=== PATIENT | female | born 2000 | race Caucasian/White ===

== ENCOUNTER 2022-11-28 16:37 | Emergency (ER) | payer OTHER, SELFPAY ==
--- NOTE | ~2022-11-28 | US_ITS ---
EXAMINATION: US PELVIS CLINICAL INFORMATION: Lower abdominal pain COMPARISON: None available. TECHNIQUE: Ultrasound of the pelvis is performed using both transabdominal and transvaginal transducers along with Doppler. Transvaginal imaging is performed due to inadequate visualization transabdominally. FINDINGS: Uterus: The uterus is anteverted and measures 6.7 x 2.8 x 3.7 cm. The double wall endometrial thickness is 2 mm. The uterus is smooth in contour and has normal myometrial echogenicity. No visible fibroid. Adnexa: Both ovaries are visualized. There is normal color flow to the adnexa. There is no ovarian torsion. There is no pelvic ascites or fluid collection. Right ovary measures 3.6 x 2.5 x 1.8 cm and volume 8.5 mL there are small follicular cysts. There is normal lumbar arterial and venous flow seen right ovarian Doppler exam. Left ovary measures 3.1 x 1.5 x 1.7 cm and volume 4.1 mL. Small follicular cysts seen. There is normal arterial and venous flow seen to left ovarian Doppler exam. There is a small anechoic cyst in the cul-de-sac question small left paraovarian cyst. There is no free fluid in cul-de-sac. US/US pelvic ovarian doppler IMPRESSION: Anechoic 3.4 cm cyst in the cul-de-sac likely arising off the left parametrium. There are small follicular cysts seen in both ovaries. The uterus is unremarkable.
--- NOTE | ~2022-11-28 | CT_ITS ---
EXAMINATION: CT ABDOMEN AND PELVIS WITH CONTRAST CLINICAL INFORMATION: Epigastric pain, leukocytosis. COMPARISON: None available. TECHNIQUE: Multidetector volumetric images were obtained from the superior aspect of the liver through the pubic symphysis following administration 85 mL of Omnipaque 350 intravenous contrast. Sagittal and coronal reformatted images were obtained on the technologist's workstation. Oral contrast: No This CT examination was performed using dose optimization techniques as appropriate, variously including the following: *Automated exposure control *Adjustment of mA and/or kV according to patient size (this includes techniques or standardized protocols for targeted exams where dose is matched to indication/reason for exam; i.e. extremities or head) *Use of iterative reconstruction technique DLP: 376 mGy-cm FINDINGS: LUNG BASES: The visualized lung bases are unremarkable. LIVER, GALLBLADDER, AND BILIARY TREE: The liver is normal in size, shape, and attenuation. No focal hepatic lesion or biliary ductal dilatation is present. The gallbladder is unremarkable with no evidence of radiopaque gallstones, gallbladder wall thickening, or obvious pericholecystic inflammatory changes. PANCREAS: Unremarkable. SPLEEN: Unremarkable. ADRENAL GLANDS: Unremarkable. KIDNEYS AND URETERS: The left kidney is small right kidney and measures kidney measures 11.3 cm. There is a left mid pole cortical thinning likely old scar. There are no radiopaque renal calculi or hydronephrosis in either side. There are bilateral extrarenal kidney pelvises.. No perinephric stranding. BLADDER: Unremarkable. GASTROINTESTINAL TRACT: Scattered stool and gas is seen throughout the colon without any significant distention. The small bowel loops are normal caliber. Appendix is not visualized. ABDOMINAL WALL: A small lacunar hernia containing fat is noted. LYMPH NODES: Normal. VASCULAR: Unremarkable. PELVIC VISCERA: There is a 4.0 x 3.5 x 3.5 cm cyst to left and posterior of uterus likely ovarian or paraovarian cyst. It measures 4 Hounsfield units. There is no free fluid. OSSEOUS STRUCTURES: No aggressive lytic or sclerotic process seen. CT/CT abdomen pelvis w IV con IMPRESSION: 1. No acute intra-abdominal process seen. 2. Mild constipation. 3. Left ovarian or paraovarian cyst. 4. Small left kidney with lateral cortex midpole scar Fleischner guidelines were followed.
--- NOTE | ~2022-11-28 | US_ITS ---
EXAMINATION: US PELVIS CLINICAL INFORMATION: Lower abdominal pain COMPARISON: None available. TECHNIQUE: Ultrasound of the pelvis is performed using both transabdominal and transvaginal transducers along with Doppler. Transvaginal imaging is performed due to inadequate visualization transabdominally. FINDINGS: Uterus: The uterus is anteverted and measures 6.7 x 2.8 x 3.7 cm. The double wall endometrial thickness is 2 mm. The uterus is smooth in contour and has normal myometrial echogenicity. No visible fibroid. Adnexa: Both ovaries are visualized. There is normal color flow to the adnexa. There is no ovarian torsion. There is no pelvic ascites or fluid collection. Right ovary measures 3.6 x 2.5 x 1.8 cm and volume 8.5 mL there are small follicular cysts. There is normal lumbar arterial and venous flow seen right ovarian Doppler exam. Left ovary measures 3.1 x 1.5 x 1.7 cm and volume 4.1 mL. Small follicular cysts seen. There is normal arterial and venous flow seen to left ovarian Doppler exam. There is a small anechoic cyst in the cul-de-sac question small left paraovarian cyst. There is no free fluid in cul-de-sac. US/US pelvic and transvaginal IMPRESSION: Anechoic 3.4 cm cyst in the cul-de-sac likely arising off the left parametrium. There are small follicular cysts seen in both ovaries. The uterus is unremarkable.
--- NOTE | 2022-11-28 16:45 | ED_ITS ---
HPI - Abdominal Pain General Chief Complaint: Abdominal Pain <Rosio Hays NP - Last Filed: 11/29/22 11:02> Stated Complaint: vomiting/ abd pain <Rosio Hays NP - Last Filed: 11/29/22 11:02> Time Seen by Provider: 11/28/22 17:13 <Rosio Hays NP - Last Filed: 11/29/22 11:02> Source: patient <CESAR Resendiz Last Filed: 11/28/22 17:29> Mode of arrival: ambulatory <CESAR Resendiz Last Filed: 11/28/22 17:29> Limitations: no limitations <CESAR Resendiz Last Filed: 11/28/22 17:29> History of Present Illness HPI narrative: This is a 22-year-old female presenting to the emergency department with nausea, vomiting, abdominal pain, subjective fevers and chills and anorexia x1 day, patient reports she has had multiple episodes of nausea and vomiting reports bilious vomiting, unable to keep anything down. Abdominal pain started in the epigastric region and has migrated down a little further per patient. Patient still has her appendix and gallbladder. Denies recent sick contacts. Denies chest pain, shortness of breath, headache, vision changes, dizziness, weakness, changes in urination or bowel habits <CESAR Resendiz Last Filed: 11/28/22 17:29> Related Data Home Medications: Previous Rx's Medication Instructions Recorded ketorolac 10 mg tablet 10 mg PO TID PRN pain 5 days #15 11/28/22 tabs <Rosio Hays NP - Last Filed: 11/29/22 11:02> Allergies/Adverse Reactions: Allergies Allergy/AdvReac Type Severity Reaction Status Date / Time No Known Allergies Allergy Verified 11/28/22 16:46 <JAI Ling Last Filed: 11/29/22 11:02> [facility] Social History Social History: Social History Smoked in Last 30 Days: Yes Use of substances other than those prescribed or required for medical reasons: Yes Substance Use Type: Marijuana Substance Use Frequency: Daily Advance Directives: No Advance Directives Information Provided: Yes <JAI Ling Last Filed: 11/29/22 11:02> Physical Exam ED Vital Signs: Vital Signs - 24 hr 11/28/22 16:47 11/28/22 17:45 11/28/22 20:22 Temperature 98.3 F 99.6 F Pulse Rate 80 87 81 Respiratory Rate 16 18 17 Blood Pressure 131/94 H 108/69 117/71 Pulse Oximetry 95 100 100 Oxygen Delivery Method Room Air Room Air Room Air BMI result Body Mass Index 22.0 <Rosio Hays NP - Last Filed: 11/29/22 11:02> Vital Signs - 24 hr 11/28/22 16:47 11/28/22 17:45 11/28/22 20:22 Temperature 98.3 F 99.6 F Pulse Rate 80 87 81 Respiratory Rate 16 18 17 Blood Pressure 131/94 H 108/69 117/71 Pulse Oximetry 95 100 100 Oxygen Delivery Method Room Air Room Air Room Air BMI result Body Mass Index 22.0 <CESAR Resendiz - Last Filed: 11/28/22 17:29> Course Course Course Narrative: This is a rapid medical exam. Deferred additional HPI, ROS, PE to primary provider. 22 yo female here with mid abdominal pain, vomiting, chills which began today. No diarrhea, urinary symptoms. LMP 1 week ago (irregular) Will check labs, UA VSS <Rosio Hays NP - Last Filed: 11/29/22 11:02> Medical Decision Making Lab Data Result Diagrams: 11/28/22 17:02 11/28/22 17:02 <Rosio Hays NP - Last Filed: 11/29/22 11:02> Labs: Lab Results 11/28/22 11/28/22 11/28/22 Range/Units 17:00 17:00 17:02 WBC 22.4 H (4.8-10.8) X10*3/uL RBC 4.58 (4.20-5.50) X10*6/uL Hgb 14.5 (12.0-16.0) g/dl Hct 41.1 (37.0-47.0) % MCV 89.7 (80.0-98.0) fL MCH 31.7 (27.0-33.0) pg MCHC 35.3 H (31.0-35.0) g/dl RDW 12.2 (11.0-16.0) % Plt Count 217 (160-400) X10*3/uL MPV 11.2 (9.4-12.3) fL Immature Gran % (Auto) 0.4 (0.0-0.4) % Neut % (Auto) 87.7 H (45-73) % Lymph % (Auto) 6.9 L (20-40) % Mcdonough % (Auto) 4.2 (2-11) % Eos % (Auto) 0.6 (0-4) % Baso % (Auto) 0.2 (0-2) % Lymph # (Auto) 1.6 (1.2-4.9) X10*3/uL Mcdonough # (Auto) 1.0 (0.1-1.2) X10*3/uL Eos # (Auto) 0.1 (0.0-0.4) X10*3/uL Baso # (Auto) 0.1 (0.0-0.2) X10*3/uL Abs Immat Gran (auto) 0.10 H (0.00-0.03) X10*3/uL Absolute Neuts (auto) 19.6 H (2.0-8.3) x10*3/uL Absolute Nucleated RBC 0.000 (0.0-0.012) X10*3/uL Nucleated RBC % (auto) 0.0 (0.0-0.2) /100WBC Sodium (135-145) mmol/L Potassium (3.3-5.1) mmol/L Chloride (96-108) mmol/L Carbon Dioxide (22-29) mmol/L Anion Gap (12-20) BUN (9-16) mg/dL Creatinine (0.5-1.4) mg/dL Estim Creat Clear Calc Estimated GFR Random Glucose (60-115) mg/dL Lactic Acid (0.5-2.0) mmol/L Calcium (8.4-10.2) mg/dL Total Bilirubin (0.0-1.0) mg/dL Direct Bilirubin (0.0-0.5) mg/dL AST (5-31) U/L ALT (0-31) U/L Alkaline Phosphatase (39-117) U/L Total Protein (6.5-8.0) g/dL Albumin (3.5-5.0) g/dL Lipase (8-78) U/L Beta HCG, Quant mIU/mL Urine Color Yellow Urine Appearance Cloudy Urine pH 5.5 (5.0-9.0) Ur Specific [place] 1.025 (1.005-1.025) Urine Protein 30 (1+) H (Neg-Trace) mg/dL Urine Glucose (UA) Negative (Negative) mg/dL Urine Ketones 80 (Negative) mg/dL Urine Blood Large (3+) H (Negative) Urine Nitrite Negative (Negative) Ur Leukocyte Esterase Trace H (Negative) Urine RBC >20 H (0-2) /HPF Urine WBC 0-5 (0-5) /HPF Ur Squamous Epith Cells >20 (0-2) /HPF Urine Bacteria 4+ (None Seen) Hyaline Casts 0-2 (0-2) /LPF Urine Yeast Present Urine Test NEGATIVE (NEGATIVE) 11/28/22 11/28/22 Range/Units 17:02 17:45 WBC (4.8-10.8) X10*3/uL RBC (4.20-5.50) X10*6/uL Hgb (12.0-16.0) g/dl Hct (37.0-47.0) % MCV (80.0-98.0) fL MCH (27.0-33.0) pg MCHC (31.0-35.0) g/dl RDW (11.0-16.0) % Plt Count (160-400) X10*3/uL MPV (9.4-12.3) fL Immature Gran % (Auto) (0.0-0.4) % Neut % (Auto) (45-73) % Lymph % (Auto) (20-40) % Mcdonough % (Auto) (2-11) % Eos % (Auto) (0-4) % Baso % (Auto) (0-2) % Lymph # (Auto) (1.2-4.9) X10*3/uL Mcdonough # (Auto) (0.1-1.2) X10*3/uL Eos # (Auto) (0.0-0.4) X10*3/uL Baso # (Auto) (0.0-0.2) X10*3/uL Abs Immat Gran (auto) (0.00-0.03) X10*3/uL Absolute Neuts (auto) (2.0-8.3) x10*3/uL Absolute Nucleated RBC (0.0-0.012) X10*3/uL Nucleated RBC % (auto) (0.0-0.2) /100WBC Sodium 137 (135-145) mmol/L Potassium 4.3 (3.3-5.1) mmol/L Chloride 106 (96-108) mmol/L Carbon Dioxide 22 (22-29) mmol/L Anion Gap 13 (12-20) BUN 18 H (9-16) mg/dL Creatinine 0.85 (0.5-1.4) mg/dL Estim Creat Clear Calc 94.2 Estimated GFR > 60 Random Glucose 114 (60-115) mg/dL Lactic Acid 0.8 (0.5-2.0) mmol/L Calcium 10.1 (8.4-10.2) mg/dL Total Bilirubin 1.7 H (0.0-1.0) mg/dL Direct Bilirubin 0.4 (0.0-0.5) mg/dL AST 20 (5-31) U/L ALT 15 (0-31) U/L Alkaline Phosphatase 70 (39-117) U/L Total Protein 7.4 (6.5-8.0) g/dL Albumin 4.7 (3.5-5.0) g/dL Lipase 13 (8-78) U/L Beta HCG, Quant < 2 mIU/mL Urine Color Urine Appearance Urine pH (5.0-9.0) Ur Specific [place] (1.005-1.025) Urine Protein (Neg-Trace) mg/dL Urine Glucose (UA) (Negative) mg/dL Urine Ketones (Negative) mg/dL Urine Blood (Negative) Urine Nitrite (Negative) Ur Leukocyte Esterase (Negative) Urine RBC (0-2) /HPF Urine WBC (0-5) /HPF Ur Squamous Epith Cells (0-2) /HPF Urine Bacteria (None Seen) Hyaline Casts (0-2) /LPF Urine Yeast Urine Test (NEGATIVE) <Rosio Hays, [employer] - Last Filed: 11/29/22 11:02> Lab Results 11/28/22 11/28/22 11/28/22 Range/Units 17:00 17:00 17:02 WBC 22.4 H (4.8-10.8) X10*3/uL RBC 4.58 (4.20-5.50) X10*6/uL Hgb 14.5 (12.0-16.0) g/dl Hct 41.1 (37.0-47.0) % MCV 89.7 (80.0-98.0) fL MCH 31.7 (27.0-33.0) pg MCHC 35.3 H (31.0-35.0) g/dl RDW 12.2 (11.0-16.0) % Plt Count 217 (160-400) X10*3/uL MPV 11.2 (9.4-12.3) fL Immature Gran % (Auto) 0.4 (0.0-0.4) % Neut % (Auto) 87.7 H (45-73) % Lymph % (Auto) 6.9 L (20-40) % Mcdonough % (Auto) 4.2 (2-11) % Eos % (Auto) 0.6 (0-4) % Baso % (Auto) 0.2 (0-2) % Lymph # (Auto) 1.6 (1.2-4.9) X10*3/uL Mcdonough # (Auto) 1.0 (0.1-1.2) X10*3/uL Eos # (Auto) 0.1 (0.0-0.4) X10*3/uL Baso # (Auto) 0.1 (0.0-0.2) X10*3/uL Abs Immat Gran (auto) 0.10 H (0.00-0.03) X10*3/uL Absolute Neuts (auto) 19.6 H (2.0-8.3) x10*3/uL Absolute Nucleated RBC 0.000 (0.0-0.012) X10*3/uL Nucleated RBC % (auto) 0.0 (0.0-0.2) /100WBC Sodium (135-145) mmol/L Potassium (3.3-5.1) mmol/L Chloride (96-108) mmol/L Carbon Dioxide (22-29) mmol/L Anion Gap (12-20) BUN (9-16) mg/dL Creatinine (0.5-1.4) mg/dL Estim Creat Clear Calc Estimated GFR Random Glucose (60-115) mg/dL Lactic Acid (0.5-2.0) mmol/L Calcium (8.4-10.2) mg/dL Total Bilirubin (0.0-1.0) mg/dL Direct Bilirubin (0.0-0.5) mg/dL AST (5-31) U/L ALT (0-31) U/L Alkaline Phosphatase (39-117) U/L Total Protein (6.5-8.0) g/dL Albumin (3.5-5.0) g/dL Lipase (8-78) U/L Beta HCG, Quant mIU/mL Urine Color Yellow Urine Appearance Cloudy Urine pH 5.5 (5.0-9.0) Ur Specific [place] 1.025 (1.005-1.025) Urine Protein 30 (1+) H (Neg-Trace) mg/dL Urine Glucose (UA) Negative (Negative) mg/dL Urine Ketones 80 (Negative) mg/dL Urine Blood Large (3+) H (Negative) Urine Nitrite Negative (Negative) Ur Leukocyte Esterase Trace H (Negative) Urine RBC >20 H (0-2) /HPF Urine WBC 0-5 (0-5) /HPF Ur Squamous Epith Cells >20 (0-2) /HPF Urine Bacteria 4+ (None Seen) Hyaline Casts 0-2 (0-2) /LPF Urine Yeast Present Urine Test NEGATIVE (NEGATIVE) 11/28/22 11/28/22 Range/Units 17:02 17:45 WBC (4.8-10.8) X10*3/uL RBC (4.20-5.50) X10*6/uL Hgb (12.0-16.0) g/dl Hct (37.0-47.0) % MCV (80.0-98.0) fL MCH (27.0-33.0) pg MCHC (31.0-35.0) g/dl RDW (11.0-16.0) % Plt Count (160-400) X10*3/uL MPV (9.4-12.3) fL Immature Gran % (Auto) (0.0-0.4) % Neut % (Auto) (45-73) % Lymph % (Auto) (20-40) % Mcdonough % (Auto) (2-11) % Eos % (Auto) (0-4) % Baso % (Auto) (0-2) % Lymph # (Auto) (1.2-4.9) X10*3/uL Mcdonough # (Auto) (0.1-1.2) X10*3/uL Eos # (Auto) (0.0-0.4) X10*3/uL Baso # (Auto) (0.0-0.2) X10*3/uL Abs Immat Gran (auto) (0.00-0.03) X10*3/uL Absolute Neuts (auto) (2.0-8.3) x10*3/uL Absolute Nucleated RBC (0.0-0.012) X10*3/uL Nucleated RBC % (auto) (0.0-0.2) /100WBC Sodium 137 (135-145) mmol/L Potassium 4.3 (3.3-5.1) mmol/L Chloride 106 (96-108) mmol/L Carbon Dioxide 22 (22-29) mmol/L Anion Gap 13 (12-20) BUN 18 H (9-16) mg/dL Creatinine 0.85 (0.5-1.4) mg/dL Estim Creat Clear Calc 94.2 Estimated GFR > 60 Random Glucose 114 (60-115) mg/dL Lactic Acid 0.8 (0.5-2.0) mmol/L Calcium 10.1 (8.4-10.2) mg/dL Total Bilirubin 1.7 H (0.0-1.0) mg/dL Direct Bilirubin 0.4 (0.0-0.5) mg/dL AST 20 (5-31) U/L ALT 15 (0-31) U/L Alkaline Phosphatase 70 (39-117) U/L Total Protein 7.4 (6.5-8.0) g/dL Albumin 4.7 (3.5-5.0) g/dL Lipase 13 (8-78) U/L Beta HCG, Quant < 2 mIU/mL Urine Color Urine Appearance Urine pH (5.0-9.0) Ur Specific [place] (1.005-1.025) Urine Protein (Neg-Trace) mg/dL Urine Glucose (UA) (Negative) mg/dL Urine Ketones (Negative) mg/dL Urine Blood (Negative) Urine Nitrite (Negative) Ur Leukocyte Esterase (Negative) Urine RBC (0-2) /HPF Urine WBC (0-5) /HPF Ur Squamous Epith Cells (0-2) /HPF Urine Bacteria (None Seen) Hyaline Casts (0-2) /LPF Urine Yeast Urine Test (NEGATIVE) <CESAR Resendiz - Last Filed: 11/28/22 17:29> Medications Administered Discontinued Medications Generic Name Dose Route Start Last Admin Trade Name Freq PRN Reason Stop Dose Admin Sodium Chloride 1,000 mls @ 999 mls/hr 11/28/22 17:30 11/28/22 19:02 Ns IV 11/28/22 18:30 Infused .Q1H1M ANÍBAL Infusion Iohexol 100 ml 11/28/22 18:02 11/28/22 18:02 Iohexol 350 Mg/Ml 100 Ml Infus..Btl IV 11/28/22 18:03 85 ml ONCE ONE Administration Ketorolac Tromethamine 30 mg 11/28/22 17:28 11/28/22 18:03 Ketorolac Tromethamine 15 Mg/Ml Vial IVPUSH 11/28/22 17:29 30 mg ONCE ONE Administration <Rosio Hays NP - Last Filed: 11/29/22 11:02> Medications Administered Discontinued Medications Generic Name Dose Route Start Last Admin Trade Name Freq PRN Reason Stop Dose Admin Sodium Chloride 1,000 mls @ 999 mls/hr 11/28/22 17:30 11/28/22 19:02 Ns IV 11/28/22 18:30 Infused .Q1H1M ANÍBAL Infusion Iohexol 100 ml 11/28/22 18:02 11/28/22 18:02 Iohexol 350 Mg/Ml 100 Ml Infus..Btl IV 11/28/22 18:03 85 ml ONCE ONE Administration Ketorolac Tromethamine 30 mg 11/28/22 17:28 11/28/22 18:03 Ketorolac Tromethamine 15 Mg/Ml Vial IVPUSH 11/28/22 17:29 30 mg ONCE ONE Administration <CESAR Resendiz - Last Filed: 11/28/22 17:29> Discharge Plan Discharge Clinical Impression: Abdominal pain, Nausea & vomiting, Ovarian cyst, UTI (urinary tract infection) <Rosio Hays NP - Last Filed: 11/29/22 11:02> Patient Disposition: Home, Self-Care <Rosio Hays NP - Last Filed: 11/29/22 11:02> Instructions: Ovarian Cyst (ED), Urinary Tract Infection in Women (DC), Acute Nausea and Vomiting (ED), Abdominal Pain (ED) <Rosio Hays NP - Last Filed: 11/29/22 11:02> Additional Instructions: Take your medications as prescribed. If you were prescribed antibiotics today, it is important that you take your medication to their entirety, do not skip any doses, do not finish them early. Follow-up with your primary care provider this week. Please follow-up with OBGYN Return to the emergency department with new or worsening symptoms. Such as fevers, chills, chest pain, shortness of breath, nausea, vomiting, dizziness, headache, vision changes, lethargy In case of emergency call 911 Toradol has been sent to your pharmacy, you tolerated this well in the department. Please take this as prescribed do not take this with ibuprofen, or other NSAIDs, do not mix this with alcohol. Side effects of this medication including increased risk for bleeding and possible kidney injury. ?CT/CT abdomen pelvis w IV con IMPRESSION: 1.? No acute intra-abdominal process seen. 2.? Mild constipation. 3.? Left ovarian or paraovarian cyst. 4.? Small left kidney with lateral cortex midpole scar ? Fleischner guidelines were followed. US/US pelvic ovarian doppler IMPRESSION: Anechoic 3.4 cm cyst in the cul-de-sac likely arising off the left parametrium. ? There are small follicular cysts seen in both ovaries. ? The uterus is unremarkable. <Rosio Hays NP - Last Filed: 11/29/22 11:02> Prescriptions: New ketorolac 10 mg tablet 10 mg PO TID PRN (Reason: pain) 5 Days Qty: 15 0RF <Rosio Hays NP - Last Filed: 11/29/22 11:02> Referrals: Physician,None [Primary Care Provider] - 2 days <Rosio Hays NP - Last Filed: 11/29/22 11:02> Stand Alone Forms: Work/School Release <Rosio Hays NP - Last Filed: 11/29/22 11:02> Interventions: ED Discharge Assessment Last Done: 11/28/22 21:03 <Rosio Hays NP - Last Filed: 11/29/22 11:02> Discharge Date/Time: 11/28/22 21:09 <Rosio Hays NP - Last Filed: 11/29/22 11:02>
[2022-11-28 16:47] VITALS: BP 131/94; PULSE 80; RESP 16; TEMP 36.8; O2SAT 95; BMI 22.0
[2022-11-28 17:07] LABS: MANUAL DIFF FLAG NO
[2022-11-28 17:12] LABS: UPreg QC Valid YES
[2022-11-28 17:14] LABS: Appearance Urine Cloudy; Color Urine Yellow; Glucose Urine UA Negative (Negative); Leukocyte Esterase Urine Trace (Negative); Nitrite Urine Negative (Negative); PH 5.5 (5.0-9.0); Specific Gravity - Urine 1.025 (1.005-1.025); UMIC TRIGGER UACC YES; Urine Blood Large (3+) (Negative); Urine Ketones 80 mg/dL (Negative); Urine Protein 30 (1+) mg/dL (Neg-Trace)
[2022-11-28 17:14] LABS: Basophils Absolute Auto 0.1 X10*3/uL (0.0-0.2); Basophils Percent Auto 0.2 % (0-2); Eosinophils Absolute Auto 0.1 X10*3/uL (0.0-0.4); Eosinophils Percent Auto 0.6 % (0-4); Hematocrit 41.1 % (37.0-47.0); Hemoglobin 14.5 g/dl (12.0-16.0); Imm Gran Pct Auto 0.4 % (0.0-0.4); Lymphocytes Absolute Auto 1.6 X10*3/uL (1.2-4.9); Lymphocytes Percent Auto 6.9 % (20-40); Mean Corpuscular HGB Conc 35.3 g/dl (31.0-35.0); Mean Corpuscular Hemoglobin 31.7 pg (27.0-33.0); Mean Corpuscular Volume 89.7 fL (80.0-98.0); Mean Platelet Volume 11.2 fL (9.4-12.3); Monocytes Percent Auto 4.2 % (2-11); Neutrophils Absolute Auto 19.6 x10*3/uL (2.0-8.3); Neutrophils Percent Auto 87.7 % (45-73); Platelet Count 217 X10*3/uL (160-400); Red Blood Count 4.58 X10*6/uL (4.20-5.50); Red Cell Distribution Width 12.2 % (11.0-16.0); White Blood Count 22.4 X10*3/uL (4.8-10.8)
--- NOTE | 2022-11-28 17:14 | ED_ITS ---
HPI - Abdominal Pain General Chief Complaint: Abdominal Pain Stated Complaint: vomiting/ abd pain Time Seen by Provider: 11/28/22 17:13 Source: patient Mode of arrival: ambulatory Limitations: no limitations Related Data Previous Rx's Medication Instructions Recorded ketorolac 10 mg tablet 10 mg PO TID PRN pain 5 days #15 11/28/22 tabs Allergies Allergy/AdvReac Type Severity Reaction Status Date / Time No Known Allergies Allergy Verified 11/28/22 16:46 Review of Systems Review of Systems Constitutional : No Weight loss, + Fever, + Chills, No Fatigue, No Malaise ENT/Mouth : No sore throat, No Rhinorrhea Eyes: No Eye Pain, No Swelling, No Redness Cardiovascular : No Chest Pain, No SOB, No Dyspnea on Exertion, No Orthopnea, No Edema, No Palpitations Respiratory : No Cough, No Sputum, No Wheezing Gastrointestinal : + Nausea, + Vomiting, No Diarrhea, No Constipation, + abdominal Pain, No Hematochezia, No Melena Genitourinary : No Dysuria, No Urinary Frequency, No Hematuria, Musculoskeletal : No joint pain, No Myalgias, No Joint Swelling Skin : No Skin Lesions, No rash Neuro : No Weakness, No Numbness, No Dizziness, No Headache Psych : No Anxiety/Panic, No Depression All other systems reviewed and are negative Yes all other systems are reviewed and are negative [facility] Social History Social History Smoked in Last 30 Days: Yes Use of substances other than those prescribed or required for medical reasons: Yes Substance Use Type: Marijuana Substance Use Frequency: Daily Advance Directives: No Advance Directives Information Provided: Yes Physical Exam ED Vital Signs: Vital Signs - 24 hr 11/28/22 16:47 11/28/22 17:45 11/28/22 20:22 Temperature 98.3 F 99.6 F Pulse Rate 80 87 81 Respiratory Rate 16 18 17 Blood Pressure 131/94 H 108/69 117/71 Pulse Oximetry 95 100 100 Oxygen Delivery Method Room Air Room Air Room Air BMI result Body Mass Index 22.0 Vital signs stable Appearance: Alert.? Oriented X3.? No acute distress.? Head: Normocephalic, atraumatic, no step-offs or deformities Eyes: Pupils equal, round and reactive to light.? ENT: Pharynx normal.? Neck: Normal inspection.? Neck supple.? CVS: Normal heart rate and rhythm.? Pulses normal.? Respiratory: No respiratory distress.? Breath sounds normal.? Abdomen: Soft and epigastric & right lower quadrant tenderness, positive Rovsing, McBurney's point. Negative Aguirre sign. Skin: Skin warm and dry.? Normal skin color.? Normal skin turgor.? Extremities: No lower extremity edema.? No calf ttp. 5/5 strength to bilateral upper and lower extremities Neuro: Oriented X 3.? No motor deficit.? No sensory deficit. CN 2-12 intact Course Reevaluation(s) Reevaluation #1: CBC with leukocytosis of 22.4 likely reactive to nausea and vomiting. Chemistry with no acute electrolyte abnormalities requiring intervention, lactic acid 0.8. Bilirubin 1.7 low suspicion for liver gallbladder. Lipase within normal limits, beta hCG negative. You a with infection. Will discharge patient home with antibiotics for UTI. Appendix unremarkable on CT scan, CT with no acute intra-abdominal process seen, mild constipation, left ovarian or paraovarian cyst, small left kidney with lateral cortex midpole scar. Will obtain ultrasound of pelvic and transvaginal region. Time: 20:30 Reevaluation #2: Ultrasound with an anechoic 3.4 cm cyst in the cul-de-sac likely arising of the left parametrium, small follicular cysts seen in both ovaries, uterus unremarkable. No signs of ovarian torsion. Educated patient on diagnosis and treatment plan, answered all question, patient verbalizes understanding. At this time patient will be discharged home, advised to return with new or w orsening symptoms. Educated on worrisome signs and symptoms and when to return. At this time I feel comfortable discharge home. At time of discharge patient tolerating p.o. in feeling much better. Time: 20:31 Medical Decision Making Medical Decision Making [facility] Narrative: [age]-year-old female presents with epigastric abdominal pain, nausea, vomiting, subjective fevers and chills x1 day. LMP a week ago reports irregular cycles Physical exam epigastric & right lower quadrant tenderness, positive Rovsing, McBurney's point. Negative Aguirre sign. Concerns for viral illness versus appendicitis versus cholecystitis versus diverticulitis versus pancreatitis. Unlikely ovarian torsion, ectopic , acute abdomen. Will rule out UTI, , electrolyte abno rmalities Plan labs, imaging, urine. Differential Diagnosis Differential Diagnoses: The differential diagnosis associated with the present ation includes Concerns for viral illness versus appendicitis versus cholecystitis versus diverticulitis versus pancreatitis. Unlikely ovarian torsion, ectopic , acute abdomen. Will rule out UTI, , electrolyte abnormalities Admission/Observation Consideration of admission/observation: Escalation of care including admission/observation considered Lab Data MDM Lab Attestation statement: I reviewed the patient's lab results. 11/28/22 17:02 11/28/22 17:02 Labs: Lab Results 11/28/22 11/28/22 11/28/22 Range/Units 17:00 17:00 17:02 WBC 22.4 H (4.8-10.8) X10*3/uL RBC 4.58 (4.20-5.50) X10*6/uL Hgb 14.5 (12.0-16.0) g/dl Hct 41.1 (37.0-47.0) % MCV 89.7 (80.0-98.0) fL MCH 31.7 (27.0-33.0) pg MCHC 35.3 H (31.0-35.0) g/dl RDW 12.2 (11.0-16.0) % Plt Count 217 (160-400) X10*3/uL MPV 11.2 (9.4-12.3) fL Immature Gran % (Auto) 0.4 (0.0-0.4) % Neut % (Auto) 87.7 H (45-73) % Lymph % (Auto) 6.9 L (20-40) % Richardson % (Auto) 4.2 (2-11) % Eos % (Auto) 0.6 (0-4) % Baso % (Auto) 0.2 (0-2) % Lymph # (Auto) 1.6 (1.2-4.9) X10*3/uL Richardson # (Auto) 1.0 (0.1-1.2) X10*3/uL Eos # (Auto) 0.1 (0.0-0.4) X10*3/uL Baso # (Auto) 0.1 (0.0-0.2) X10*3/uL Abs Immat Gran (auto) 0.10 H (0.00-0.03) X10*3/uL Absolute Neuts (auto) 19.6 H (2.0-8.3) x10*3/uL Absolute Nucleated RBC 0.000 (0.0-0.012) X10*3/uL Nucleated RBC % (auto) 0.0 (0.0-0.2) /100WBC Sodium (135-145) mmol/L Potassium (3.3-5.1) mmol/L Chloride (96-108) mmol/L Carbon Dioxide (22-29) mmol/L Anion Gap (12-20) BUN (9-16) mg/dL Creatinine (0.5-1.4) mg/dL Estim Creat Clear Calc Estimated GFR Random Glucose (60-115) mg/dL Lactic Acid (0.5-2.0) mmol/L Calcium (8.4-10.2) mg/dL Total Bilirubin (0.0-1.0) mg/dL Direct Bilirubin (0.0-0.5) mg/dL AST (5-31) U/L ALT (0-31) U/L Alkaline Phosphatase (39-117) U/L Total Protein (6.5-8.0) g/dL Albumin (3.5-5.0) g/dL Lipase (8-78) U/L Beta HCG, Quant mIU/mL Urine Color Yellow Urine Appearance Cloudy Urine pH 5.5 (5.0-9.0) Ur Specific [place] 1.025 (1.005-1.025) Urine Protein 30 (1+) H (Neg-Trace) mg/dL Urine Glucose (UA) Negative (Negative) mg/dL Urine Ketones 80 (Negative) mg/dL Urine Blood Large (3+) H (Negative) Urine Nitrite Negative (Negative) Ur Leukocyte Esterase Trace H (Negative) Urine RBC >20 H (0-2) /HPF Urine WBC 0-5 (0-5) /HPF Ur Squamous Epith Cells >20 (0-2) /HPF Urine Bacteria 4+ (None Seen) Hyaline Casts 0-2 (0-2) /LPF Urine Yeast Present Urine Test NEGATIVE (NEGATIVE) 11/28/22 11/28/22 Range/Units 17:02 17:45 WBC (4.8-10.8) X10*3/uL RBC (4.20-5.50) X10*6/uL Hgb (12.0-16.0) g/dl Hct (37.0-47.0) % MCV (80.0-98.0) fL MCH (27.0-33.0) pg MCHC (31.0-35.0) g/dl RDW (11.0-16.0) % Plt Count (160-400) X10*3/uL MPV (9.4-12.3) fL Immature Gran % (Auto) (0.0-0.4) % Neut % (Auto) (45-73) % Lymph % (Auto) (20-40) % Richardson % (Auto) (2-11) % Eos % (Auto) (0-4) % Baso % (Auto) (0-2) % Lymph # (Auto) (1.2-4.9) X10*3/uL Richardson # (Auto) (0.1-1.2) X10*3/uL Eos # (Auto) (0.0-0.4) X10*3/uL Baso # (Auto) (0.0-0.2) X10*3/uL Abs Immat Gran (auto) (0.00-0.03) X10*3/uL Absolute Neuts (auto) (2.0-8.3) x10*3/uL Absolute Nucleated RBC (0.0-0.012) X10*3/uL Nucleated RBC % (auto) (0.0-0.2) /100WBC Sodium 137 (135-145) mmol/L Potassium 4.3 (3.3-5.1) mmol/L Chloride 106 (96-108) mmol/L Carbon Dioxide 22 (22-29) mmol/L Anion Gap 13 (12-20) BUN 18 H (9-16) mg/dL Creatinine 0.85 (0.5-1.4) mg/dL Estim Creat Clear Calc 94.2 Estimated GFR > 60 Random Glucose 114 (60-115) mg/dL Lactic Acid 0.8 (0.5-2.0) mmol/L Calcium 10.1 (8.4-10.2) mg/dL Total Bilirubin 1.7 H (0.0-1.0) mg/dL Direct Bilirubin 0.4 (0.0-0.5) mg/dL AST 20 (5-31) U/L ALT 15 (0-31) U/L Alkaline Phosphatase 70 (39-117) U/L Total Protein 7.4 (6.5-8.0) g/dL Albumin 4.7 (3.5-5.0) g/dL Lipase 13 (8-78) U/L Beta HCG, Quant < 2 mIU/mL Urine Color Urine Appearance Urine pH (5.0-9.0) Ur Specific [place] (1.005-1.025) Urine Protein (Neg-Trace) mg/dL Urine Glucose (UA) (Negative) mg/dL Urine Ketones (Negative) mg/dL Urine Blood (Negative) Urine Nitrite (Negative) Ur Leukocyte Esterase (Negative) Urine RBC (0-2) /HPF Urine WBC (0-5) /HPF Ur Squamous Epith Cells (0-2) /HPF Urine Bacteria (None Seen) Hyaline Casts (0-2) /LPF Urine Yeast Urine Test (NEGATIVE) Independent Interpretation I performed an independent interpretation of an: CT Scan Radiology Impression Discussion of test interpretation with radiology: I have reviewed the radio logist's reading. Core Measures AMI core measures followed: Yes Measure exclusions: not indicated Medications Administered Discontinued Medications Generic Name Dose Route Start Last Admin Trade Name Freq PRN Reason Stop Dose Admin Sodium Chloride 1,000 mls @ 999 mls/hr 11/28/22 17:30 11/28/22 19:02 Ns IV 11/28/22 18:30 Infused .Q1H1M ANÍBAL Infusion Iohexol 100 ml 11/28/22 18:02 11/28/22 18:02 Iohexol 350 Mg/Ml 100 Ml Infus..Btl IV 11/28/22 18:03 85 ml ONCE ONE Administration Ketorolac Tromethamine 30 mg 11/28/22 17:28 11/28/22 18:03 Ketorolac Tromethamine 15 Mg/Ml Vial IVPUSH 11/28/22 17:29 30 mg ONCE ONE Administration Critical Care Time Critical Care Time Critical Care Time: No Discharge Plan Discharge Clinical Impression: Abdominal pain, Nausea & vomiting, Ovarian cyst, UTI (urinary tract infection) Patient Disposition: Home, Self-Care Instructions: Ovarian Cyst (ED), Urinary Tract Infection in Women (DC), Acute Nausea and Vomiting (ED), Abdominal Pain (ED) Additional Instructions: Take your medications as prescribed. If you were prescribed antibiotics today, it is important that you take your medication to their entirety, do not skip any doses, do not finish them early. Follow-up with your primary care provider this week. Please follow-up with OBGYN Return to the emergency department with new or worsening symptoms. Such as fevers, chills, chest pain, shortness of breath, nausea, vomiting, dizziness, headache, vision changes, lethargy In case of emergency call 911 Toradol has been sent to your pharmacy, you tolerated this well in the department. Please take this as prescribed do not take this with ibuprofen, or other NSAIDs, do not mix this with alcohol. Side effects of this medication including increased risk for bleeding and possible kidney injury. ?CT/CT abdomen pelvis w IV con IMPRESSION: 1.? No acute intra-abdominal process seen. 2.? Mild constipation. 3.? Left ovarian or paraovarian cyst. 4.? Small left kidney with lateral cortex midpole scar ? Fleischner guidelines were followed. US/US pelvic ovarian doppler IMPRESSION: Anechoic 3.4 cm cyst in the cul-de-sac likely arising off the left parametrium. ? There are small follicular cysts seen in both ovaries. ? The uterus is unremarkable. Prescriptions: New ketorolac 10 mg tablet 10 mg PO TID PRN (Reason: pain) 5 Days Qty: 15 0RF Referrals: Physician,None [Primary Care Provider] - 2 days Stand Alone Forms: Work/School Release
[2022-11-28 17:15] LABS: Urine Pregnancy NEGATIVE (NEGATIVE)
[2022-11-28 17:23] LABS: Bacteria Urine 4+ (None Seen); Hyaline Casts Urine 0-2 /LPF (0-2); RBC Urine >20 /HPF (0-2); Squamous Epithelial Cell Urine >20 /HPF (0-2); WBC Urine 0-5 /HPF (0-5)
[2022-11-28 17:30] LABS: Alanine Aminotransferase 15 U/L (0-31); Albumin Level 4.7 g/dL (3.5-5.0); Alkaline Phosphatase 70 U/L (39-117); Anion Gap 13 (12-20); Aspartate Amino Transferase 20 U/L (5-31); Bilirubin Direct 0.4 mg/dL (0.0-0.5); Bilirubin Total 1.7 mg/dL (0.0-1.0); Blood Urea Nitrogen 18 mg/dL (9-16); Calcium 10.1 mg/dL (8.4-10.2); Carbon Dioxide 22 mmol/L (22-29); Chloride 106 mmol/L (96-108); Creatinine Clr Calc Pharmacy 94.2; Estimated Glomerular Filt Rate > 60; Glucose Random 114 mg/dL (60-115); Lipase 13 U/L (8-78); Potassium 4.3 mmol/L (3.3-5.1); Sodium 137 mmol/L (135-145); Total Protein 7.4 g/dL (6.5-8.0)
[2022-11-28 17:45] VITALS: BP 108/69; PULSE 87; RESP 18; O2SAT 100
[2022-11-28] MEDS: 0.9 % Sodium Chloride 1,000 ML 999 ML IV (17:46)
--- NOTE | 2022-11-28 17:54 | PC.NURSE ---
pt alert and oriented, skin pwd, respirations even and unlabored, ls clear, and soft but tender, bowel sounds in all 4 quadrants. pt reports mid abd pain that started today at 1500 with vomiting and nausea
[2022-11-28 18:01] LABS: Lactic Acid 0.8 mmol/L (0.5-2.0)
[2022-11-28] MEDS: iohexoL 350 MG/ML 100 ML INFUS..BTL IV (18:02)
[2022-11-28] MEDS: Ketorolac Tromethamine 15 MG/ML VIAL 30 MG IVPUSH (18:03)
[2022-11-28 18:12] LABS: HCG Quantitative < 2 mIU/mL
[2022-11-28 20:22] VITALS: BP 117/71; PULSE 81; RESP 17; TEMP 37.6; O2SAT 100
== END 2022-11-28 21:09 | disposition home or self-care (01) ==
PROVIDERS: Nurse Practitioner Family; Physician Assistant; Emergency Provider Emergency Medicine
DX: N83.202 Unspecified ovarian cyst, left side (principal); N39.0 Urinary tract infection, site not specified; R10.2 Pelvic and perineal pain; Z79.899 Other long term (current) drug therapy
CPT/HCPCS: 36415; 74177; 76830; 76856; 80048; 80076; 81001; 81025; 83605; 83690; 84702; 85025; 87040; 93975; 96361; 96374; 99284; 99285; J1885; Q9967